=== PATIENT | male | born 1975 | race Caucasian/White ===

== ENCOUNTER 2020-06-12 14:30 | Outpatient (REF) | payer OTHER, SELFPAY | END 2020-06-12 14:31 | disposition home or self-care (01) | LOC: HO.LAB 14:30 | PROVIDERS: Visit Provider Internal Medicine | DX: Z20.822 Contact with and (suspected) exposure to COVID-19 (principal) | CPT/HCPCS: 36415; C9803; U0003 ==

== ENCOUNTER 2023-10-14 09:45 | Outpatient (AMB) | payer OTHER, SELFPAY ==
--- NOTE | 2023-10-14 10:00 | A.OFFPC_ITS ---
Vital Signs 10/14/23 10:01 Height 6 ft 1 in Weight 248 lb BMI 32.7 BP 118/62 Blood Pressure Location Lt brachial Position Sitting Pulse 60 Pulse Source Pulse Oximeter Pulse Oximetry (%) 96 Oxygen Delivery Method Room Air Intake Visit Reasons: EST care Intake Note: Patient is a new patient with complaint of bilateral knee pain. Allergies Seasonal Allergies Allergy (Mild, Verified 10/14/23 10:04) itchy, watery eyes, runny nose Tobacco use date assessed: 10/14/23 Dental Screening Dental Screen Date: 10/14/23 Did you have a dental visit in the last 12 months?: Yes Did you have a dental problem in the last 6 months where you did not have access to dental care?: No Was dental information given to patient?: Patient has dentist HPI EST care HPI Details New patient Prior PCP:? Dr Orantes Last office visit/CPE: CPE 7 mos ago Acute issue(s): Knees PMHx: Bilat Knee pain and had seen [facility]. Sleep Apnea has CPAP SurgHx: L Meniscus. R ACL, MCL & Arthroscopy. FHx: Mom: Skin CA. Dad: healthy GF Colon CA SocHx: Nonsmoker. EtOH: No drugs PFSH Medical History (Updated 10/14/23 @ 10:44 by Ruben New MD) Seasonal allergies Surgical History (Updated 10/14/23 @ 10:10 by Eneida Shankar CMA) H/O knee surgery [place] teeth removed Family History (Updated 10/14/23 @ 10:12 by Eneida Shankar CMA) Maternal Grandfather Colon cancer Social History (Updated 10/14/23 @ 10:16 by Eneida Shankar CMA) Household Members: Family Both parents involved: No Caregiver staying overnight: No Housing: House Are you a primary care team coordinator scheduler to a significant other at home: No Do you presently have visiting nurse or other home services: No 75 years or older and lives alone: No Alcohol intake: current Patient Tobacco Use Status: Never used Tobacco e-Cigarette/Vaping Use: Never Used Use of substances other than those prescribed or required for medical reasons: No Have you been hit, kicked, punched, or otherwise hurt by someone within the past year? If so, by whom?: No Do you feel safe in your current relationship?: Yes Is there a partner from a previous relationship who is making you feel unsafe now?: No Are you made to feel afraid or neglected: No Special shakila needs: No Are you DNR?: No Advance Directives: No Healthcare Proxy: No service: Yes Current occupational status: employed Cognitive needs: No Hearing needs: No Vision needs: Yes (Patient wears glasses.) Questionnaire PHQ-9 Over the last 2 weeks, how often have you been bothered by any of the following problems? 1. Little interest or pleasure in doing things: several days 2. Feeling down, depressed, or hopeless: several days 3. Trouble falling or staying asleep, or sleeping too much: nearly every day 4. Feeling tired or having little energy: nearly every day 5. Poor appetite or overeating: not at all 6. Feeling bad about yourself - or that you are a failure or have let yourself or your family down: not at all 7. Trouble concentrating on things, such as reading the newspaper or watching television: not at all 8. Moving or speaking so slowly that other people could have noticed. Or the opposite - being so fidgety or restless that you have been moving around a lot more than usual: not at all 9. Thoughts that you would be better off or of hurting yourself in some way: not at all Total score: 8 Depression Screening Interpretation: Positive Depression Screening Done: Yes 80713 - PHQ-9 Billing: Yes Source: Developed by Drs. Ravinder Milligan, Tennille Saucedo, Saroj Mcconnell and colleagues, with an educational esteban from [employer]. Thrive Questionnaire Date Thrive assessed: 10/14/23 I am a: Patient What is your living situation today?: I have a steady place to live Within the past 12 months, did the food you bought not last and you didn't have the money to get more?: Never true Within the past 12 months, did you worry whether your food would run out before you got money to buy more?: Never true Do you have trouble paying for medicines?: No Do you have trouble getting transportation to medical appointments?: No Do you have trouble paying your heating and electricity bill?: No Do you have trouble taking care of your child, family member or friend?: No Do you have trouble with day-to-day activities such as bathing, preparing meals, shopping, managing finances, etc.?: No Are you currently unemployed and looking for a job?: No Are you interested in more education?: No THRIVE Score: 0 AUDIT C Alcohol Use Questionnaire (AUDIT-C) 1. How often do you have a drink containing alcohol?: 2-3 times a week 2. How many drinks containing alcohol do you have on a typical day when you are drinking?: 5 or 6 3. How often do you have six or more drinks on one occasion?: Monthly Total Score: 7 ARIANA-7 AMB Questionnaire ARIANA-7 Date ARIANA - 7 assessed: 10/14/23 Feeling nervous, anxious, or on edge: 0 = Not at all Not being able to stop or control worryin = Not at all Worrying too much about different things: 0 = Not at all Trouble relaxin = Not at all Being so restless that it is hard to sit still: 0 = Not at all Becoming easily annoyed or irritable: 0 = Not at all Feeling afraid as if something awful might happen: 0 = Not at all Total ARIANA-7 score (0-4 normal; 5-9 mild; 10-14 moderate; 15-21 severe): 0 Source: Developed by Drs. Ravinder Milligan, Tennille Saucedo, Saroj Mcconnell and colleagues, with an educational esteban from [employer]. ARIANA-7 Assessment Billing ARIANA-7 Assessment Tool: ARIANA-7 Assessment 45063 Review of Systems Const Denies chills, Denies fatigue, Denies fever(s), Denies headache(s) and Denies weakness ENT Denies dizziness and Denies headache(s) Card Denies chest pain, Denies lightheadedness, Denies dyspnea and Denies other (Palpitations) Resp Denies cough, Denies dyspnea, Denies wheezing and Denies other ( shortness of breath) Musc Details: Bilateral knee pain Denies numbness and Denies tingling Neuro Denies dizziness, Denies headache(s), Denies numbness, Denies tingling, Denies paresthesias and Denies weakness Psych Denies anxiety and Denies depression Endo Denies fatigue Aller/Immun Denies wheezing Physical exam (Primary Care) Vital Signs: Last Vital Signs Pulse 60 10/14/23 10:01 BP 118/62 10/14/23 10:01 Pulse Ox 96 10/14/23 10:01 Oxygen Delivery Method Room Air 10/14/23 10:01 BMI result Body Mass Index 32.7 Tobacco/Smoking Status: Tobacco use Status Tobacco use date assessed 10/14/23 10/14/23 10:17 Patient Tobacco Use Status Never used Tobacco 10/14/23 10:17 e-Cigarette/Vaping Use Never Used 10/14/23 10:17 PHQ-9: PHQ-9 Score PHQ-9: Total score 8 10/14/23 10:22 Depression Screening Interpretation: Positive Thrive Assessment: Date of Thrive Assessment Date Thrive assessed 10/14/23 10/14/23 10:22 Const General: no acute distress and well developed Nutritional Appearance: well nourished Orientation/consciousness: patient oriented x3 HENMT Head: Yes normocephalic and Yes atraumatic Eyes General: appearance normal, both eyes and all related structures Pupils: Equal, round and reactive pupils present EOM: EOMs intact bilaterally Resp Effort & Inspection: normal respiratory effort Auscultation: clear to auscultation bilaterally Cardio Rate: regular rate Rhythm: regular rhythm Heart sounds: S1 normal heart sound present, S2 normal heart sound present, no gallops, no murmurs and no rubs Neuro General: patient oriented x3 and gait normal Cranial nerves: Yes Equal, round and reactive pupils present Psych Affect: normal affect Assessment and Plan Assessment & Plan (1) Bilateral knee pain: Code(s): M25.561 - Pain in right knee; M25.562 - Pain in left knee Plan: Bilateral?knee?pain?and?hist ory?of?meniscal?and?cartilaginous?injuries?as?well?as?ligamentous?injuries. Patient?was?lifting?heavy?objects?with?deep?knee?bending?last?week?and?now?has?d iscomfort?above?his?knee?at?the?patellar?ten don.??Has?some?mild?swelling?there?as?well. Likely?patellar?tendon?strain?and?inflammation. Can?use?ibuprofen?as?well?as?ice/heat. Will?give?him?a?couple?days?off?to?rest?his?knees. Also?checking?x-rays?as?patient?has swelling?in?bilateral?knees?with?chronic?pain. Has?seen?new[facility]?in?the?past?and?may?need?a?referral?again. May?also?need?referral?to?physical?therapy. Will?review?the?above?at?his?upcoming?appoint (2) Sleep apnea: Code(s): G47.30 - Sleep apnea, unspecified Plan: Stable.??Continue?CPAP (3) Family history of colon cancer: Code(s): Z80.0 - Family history of malignant neoplasm of digestive organs Plan: Will?refer?to?Gastroenterology (4) Laboratory exam ordered as part of routine general medical examination: Code(s): Z00.00 - Encounter for general adult medical examination without abnormal findings Plan: Check?labs Orders: Orders Comprehensive [place]. Panel Fast Today Z00.00 - Encounter for general adult medical examination without abnormal findings Microalbumin, Random (w Creat) Today I10 - Essential (primary) hypertension Lipid Panel Today Z00.00 - Encounter for general adult medical examination without abnormal findings Prostate Specific Antigen Scr Today Z12.5 - Encounter for screening for malignant neoplasm of prostate UA and rflx microscopic Today Z00.00 - Encounter for general adult medical examination without abnormal findings TSH reflex Free T4 Today Z00.00 - Encounter for general adult medical examination without abnormal findings XR knee LT 3V Today M25.561 - Pain in right knee, M25.562 - Pain in left knee XR knee RT 3V Today M25.561 - Pain in right knee, M25.562 - Pain in left knee Referrals Gastroenterology Referral Z80.0 - Family history of malignant neoplasm of digestive organs Medications: New ibuprofen 600 mg PO Q8H 30 days PRN 90 tabs 0RF pain/swelling Coding Level of Care Code New Pt Level 3 (95259) Diagnoses Bilateral knee pain M25.561; M25.562 Sleep apnea G47.30 Family history of colon cancer Z80.0 Laboratory exam ordered as part of routine general medical examination Z00.00 Additional Codes ARIANA-7 Assessment Billing - ARIANA-7 Assessment Tool: ARIANA-7 Assessment 13176 ([id number])
[2023-10-14 10:01] VITALS: BP 118/62; PULSE 60; O2SAT 96; BMI 32.7
== END 2023-10-14 10:45 | disposition home or self-care (01) ==
PROVIDERS: PCP Internal Medicine; Visit Provider Family Medicine
DX: M25.561 Pain in right knee (principal); M25.562 Pain in left knee; G47.30 Sleep apnea, unspecified; Z80.0 Family history of malignant neoplasm of digestive organs; Z00.00 Encounter for general adult medical examination without abnormal findings
CPT/HCPCS: 99203

== ENCOUNTER 2023-10-14 10:50 | Outpatient (REF) | payer OTHER, SELFPAY ==
[2023-10-14 14:29] LABS: Appearance Urine Turbid; Color Urine Dark Yellow; Glucose Urine UA Negative (Negative); Leukocyte Esterase Urine Negative (Negative); Nitrite Urine Negative (Negative); PH 5.5 (5.0-9.0); Specific Gravity - Urine 1.025 (1.005-1.025); Urine Blood Negative (Negative); Urine Ketones Trace mg/dL (Negative); Urine Protein Negative (Neg-Trace)
[2023-10-14 15:18] LABS: Creatinine Urine 236.33 mg/dL; Microalbum/Creatinine Ratio Ur 6.3 ug/mg cr (<30)
[2023-10-14 15:40] LABS: Alanine Aminotransferase 25 U/L (0-40); Albumin Level 4.7 g/dL (3.5-5.0); Alkaline Phosphatase 126 U/L (39-117); Anion Gap 15 (12-20); Aspartate Amino Transferase 26 U/L (5-37); Blood Urea Nitrogen 17 mg/dL (9-16); Calcium 10.1 mg/dL (8.4-10.2); Carbon Dioxide 25 mmol/L (22-29); Chloride 106 mmol/L (96-108); Cholesterol 174 mg/dL (<200); Estimated Glomerular Filt Rate > 60; Glucose Fasting 79 mg/dL (60-99); HDL Cholesterol 49 mg/dL (>40); LDL Cholesterol Calculated 107 mg/dL (<100); Potassium 3.9 mmol/L (3.3-5.1); Sodium 142 mmol/L (135-145); Triglycerides 91 mg/dL (<150)
[2023-10-14 15:55] LABS: TSH reflex Free T4 2.59 uIU/mL (0.32-4.0)
[2023-10-14 15:56] LABS: Prostate Specific Antigen Scr 1.54 ng/mL (<0.05-4.0)
== END 2023-10-14 10:51 | disposition home or self-care (01) ==
LOC: HO.WFDLDS 10:50
PROVIDERS: Visit Provider Family Medicine
DX: Z00.00 Encounter for general adult medical examination without abnormal findings (principal); I10 Essential (primary) hypertension; Z12.5 Encounter for screening for malignant neoplasm of prostate
CPT/HCPCS: 36415; 80053; 80061; 81003; 82043; 82570; 84153; 84443

== ENCOUNTER 2023-10-15 10:17 | Outpatient (REF) | payer OTHER, SELFPAY ==
--- NOTE | ~2023-10-15 | XR_ITS ---
EXAMINATION: XR KNEE, RIGHT CLINICAL INFORMATION: Pain in right knee COMPARISON: None available. TECHNIQUE: The of the right knee. FINDINGS: No fracture. Small joint effusion. The patient is status post ACL repair with screw seen within the distal femur and proximal tibia. There is marked narrowing of the medial joint compartment. There are tricompartment marginal osteophytes. There is lateral patellar tilt with associated narrowing of the patellofemoral joint compartment. Small ossific or calcific densities are seen superior to the upper pole of the patella and also posterior to the lower pole of patella, on the lateral view. These may represent loose bodies within the joint. XR/XR knee RT 3V IMPRESSION: 1. No acute bony abnormality. 2. Status post ACL repair. 3. Marked osteoarthritis. 4. Question of loose bodies within the joint.
--- NOTE | ~2023-10-15 | XR_ITS ---
EXAMINATION: XR KNEE, LEFT CLINICAL INFORMATION: Pain in right knee COMPARISON: None available. TECHNIQUE: 3 views of the left knee. FINDINGS: No fracture. Large joint effusion. There is mild patellar tilt with mild narrowing of the lateral patellofemoral joint compartment. There is moderate narrowing of the medial joint compartment with subchondral cyst within the tibial plateau. No abnormal soft tissue calcification. XR/XR knee LT 3V IMPRESSION: 1. Moderate osteoarthritis. 2. Large joint effusion.
== END 2023-10-15 10:18 | disposition home or self-care (01) ==
LOC: HO.XRAY 10:17
PROVIDERS: Visit Provider Family Medicine
DX: M25.561 Pain in right knee (principal); M25.562 Pain in left knee
CPT/HCPCS: 73562

== ENCOUNTER 2024-01-29 07:47 | Outpatient (AMB) | payer OTHER, SELFPAY ==
--- NOTE | 2024-01-29 08:01 | A.OFFPC_ITS ---
Vital Signs 01/29/24 08:04 Height 6 ft 1 in Weight 250 lb 2 oz BMI 33.0 BP 126/82 Blood Pressure Location Rt brachial Position Sitting Respiration 16 Pulse 65 Pulse Source Pulse Oximeter Pulse Oximetry (%) 98 Oxygen Delivery Method Room Air Intake Visit Reasons: CPE with f/u labs and health maint Intake Note: Physical. Trouble sleeping. 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 Allergies Seasonal Allergies Allergy (Mild, Verified 01/29/24 08:01) itchy, watery eyes, runny nose Medication List - Last Reconciled 01/29/24 by Yesica Payne PA-C fluticasone propionate 50 mcg/actuation (Flonase Allergy Relief) 1 spray intranasal Q12H ibuprofen 600 mg PO Q8H PRN 30 days Tobacco use date assessed: 01/29/24 Dental Screening Dental Screen Date: 01/29/24 Did you have a dental visit in the last 12 months?: Yes Did you have a dental problem in the last 6 months where you did not have access to dental care?: No Was dental information given to patient?: No HPI CPE with f/u labs and health maint HPI Details Patient is a 48-year-old male who presents today for a follow up/physical. He was seen recently to establish care with Dr. New. Musculoskeletal: He made the appointment initially because of his bilateral knee pain. X-rays revealed osteoarthritis. He takes ibuprofen as needed for the pain but states that his knees bother him a lot in that they are always swollen. At times it feels like they are going to give out on him. He has had knee surgery on both knees and would like to go back to [facility]. CV: Blood pressure today in the office is 126/82. No chest pain, shortness a or dizziness Psych: He states that for many years he has had a hard time staying asleep. He states that he sometimes can fall asleep without difficulty but we will often times wake up a few hours later. He has had a sleep study and does have sleep apnea and is compliant with CPAP. He has tried trazodone, edibles and melatonin without any improvement. Denies any generalized anxiety or depression. He states he is not waking up because he ST use the bathroom he wakes up and then just can not go back to bed. Colonoscopy: He was referred to GI at his last visit. He does have a family history of colon cancer. Appointment scheduled in April PSA: Up-to-date and [facility]NL [facility] Medical History (Updated 01/29/24 @ 08:36 by Yesica Payne PA-C) Seasonal allergies Surgical History (Updated 10/14/23 @ 10:10 by Eneida Shankar CMA) H/O knee surgery [place] teeth removed Family History (Updated 10/14/23 @ 10:12 by Eneida Shankar CMA) Maternal Grandfather Colon cancer Social History (Updated 10/14/23 @ 10:16 by Eneida Shankar CMA) Household Members: Family Both parents involved: No Caregiver staying overnight: No Housing: House Are you a primary medicare coordinator to a significant other at home: No Do you presently have visiting nurse or other home services: No 75 years or older and lives alone: No Alcohol intake: current Patient Tobacco Use Status: Never used Tobacco e-Cigarette/Vaping Use: Never Used Substance Use Type: Marijuana Special shakila needs: No service: Yes Current occupational status: employed Current occupation: [employer] Current occupational exposures/hazards: No Cognitive needs: No Hearing needs: No Vision needs: Yes (Patient wears glasses.) Questionnaire PHQ-9 Over the last 2 weeks, how often have you been bothered by any of the following problems? 1. Little interest or pleasure in doing things: not at all 2. Feeling down, depressed, or hopeless: not at all 3. Trouble falling or staying asleep, or sleeping too much: nearly every day 4. Feeling tired or having little energy: more than half the days 5. Poor appetite or overeating: more than half the days 6. Feeling bad about yourself - or that you are a failure or have let yourself or your family down: not at all 7. Trouble concentrating on things, such as reading the newspaper or watching television: not at all 8. Moving or speaking so slowly that other people could have noticed. Or the opposite - being so fidgety or restless that you have been moving around a lot more than usual: several days 9. Thoughts that you would be better off or of hurting yourself in some way: not at all Total score: 8 Depression Screening Interpretation: Positive Depression Screening Done: Yes 96087 - PHQ-9 Billing: Yes Source: Developed by Drs. Ravinder Milligan, Tennille Saucedo, Saroj Mcconnell and colleagues, with an educational esteban from [employer]. Thrive Questionnaire Date Thrive assessed: 01/29/24 I am a: Patient What is your living situation today?: I have a steady place to live Within the past 12 months, did the food you bought not last and you didn't have the money to get more?: Never true Within the past 12 months, did you worry whether your food would run out before you got money to buy more?: Never true Do you have trouble paying for medicines?: No Do you have trouble getting transportation to medical appointments?: No Do you have trouble paying your heating and electricity bill?: No Do you have trouble taking care of your child, family member or friend?: No Do you have trouble with day-to-day activities such as bathing, preparing meals, shopping, managing finances, etc.?: No Are you currently unemployed and looking for a job?: No Are you interested in more education?: No Please select the resources that you would like help with: None Currently or been in a relationship where the following occur: No concerns reported THRIVE Score: 0 AUDIT C Alcohol Use Questionnaire (AUDIT-C) 1. How often do you have a drink containing alcohol?: 4 or more times a week 2. How many drinks containing alcohol do you have on a typical day when you are drinking?: 3 or 4 3. How often do you have six or more drinks on one occasion?: Less than monthly (Special occasions) Total Score: 6 Score Reviewed/Action Taken: Yes ARIANA-7 AMB Questionnaire ARIANA-7 Date ARIANA - 7 assessed: 10/14/23 Source: Developed by Drs. Ravinder Milligan, Tennille Saucedo, Saroj Mcconnell and colleagues, with an educational esteban from [employer]. Physical exam (Primary Care) Tobacco/Smoking Status: Tobacco use Status Tobacco use date assessed 10/14/23 10/14/23 10:17 Patient Tobacco Use Status Never used Tobacco 10/14/23 10:17 e-Cigarette/Vaping Use Never Used 10/14/23 10:17 Depression Screening Interpretation: Positive Thrive Assessment: Date of Thrive Assessment Date Thrive assessed 10/14/23 10/14/23 10:22 Currently or been in a relationship where the following occur: No concerns reported Const Orientation/consciousness: patient oriented x3 HENMT Ears: hearing grossly normal bilaterally and TM's normal bilaterally General nose exam: No nasal polyps present Face and sinus: Yes sinuses nontender Mouth: Normal oral and palatal mucosa present Eyes Pupils: Equal, round and reactive pupils present EOM: EOMs intact bilaterally Neck Neck: Yes full ROM and Yes no lymphadenopathy Thyroid: Thyroid normal Chest Chest palpation & inspection: normal inspection of the chest Resp Auscultation: clear to auscultation bilaterally Cardio Rate: regular rate Rhythm: regular rhythm Heart sounds: S1 normal heart sound present and S2 normal heart sound present Peripheral pulses: Peripheral pulses 2+ throughout GI Other: Soft, nontender Auscultation: normal bowel sounds Rectal Exam - Male: Yes deferred General: Yes no CVA tenderness Back/Spine/Pelvis Other: Nontender Back: no CVA tenderness Skin General skin exam: no rashes or lesions noted Neuro General: patient oriented x3, gait normal, CN's II-XI intact bilaterally and deep tendon reflexes 2+ bilaterally Cranial nerves: Yes Equal, round and reactive pupils present Motor exam (neuro): 5/5 motor strength present throughout Sensory Exam: double simultaneous stimulation for sensation normal Coordination: tvasak-bu-jnar test normal and Romberg test negative Extrem General: Yes normal to inspection and Yes full ROM Psych Affect: normal affect Attitude: cooperative Thought process: Normal thought process present Thought content: Normal thought content present Insight: Good insight present (Psych) Judgement: Good judgement present (Psych) Results Reviewed Results Reviewed: Laboratory Tests 10/14/23 10:52 Sodium 142 Potassium 3.9 Chloride 106 Carbon Dioxide 25 Anion Gap 15 BUN 17 H Creatinine 0.84 Estimated GFR > 60 Fasting Glucose 79 Calcium 10.1 AST 26 ALT 25 Alkaline Phosphatase 126 H Triglycerides 91 Cholesterol 174 LDL Cholesterol, Calc 107 H HDL Cholesterol 49 PSA Screen 1.54 TSH 2.59 XR/XR knee LT 3V IMPRESSION: 1. Moderate osteoarthritis. 2. Large joint effusion. XR/XR knee RT 3V IMPRESSION: 1. No acute bony abnormality. 2. Status post ACL repair. 3. Marked osteoarthritis. 4. Question of loose bodies within the joint. Assessment and Plan Assessment & Plan (1) Routine general medical examination at a health care facility: Code(s): Z00.00 - Encounter for general adult medical examination without abnormal findings Plan: Health maintenance reviewed. Labs reviewed with patient. (2) Bilateral knee pain: Code(s): M25.561 - Pain in right knee; M25.562 - Pain in left knee Qualifiers: Chronicity: chronic Qualified Code(s): M25.561 - Pain in right knee; M25.562 - Pain in left knee; G89.29 - Other chronic pain Plan: Referral to [facility] (3) Insomnia: Code(s): G47.00 - Insomnia, unspecified Plan: We will start on hydroxyzine. Discussed risks and benefits and adverse effects of this medication. Orders: Orders Complete Blood Count Auto Diff Today Z00.00 - Encounter for general adult medical examination without abnormal findings Referrals Orthopedics Referral M25.561 - Pain in right knee, M25.562 - Pain in left knee Medications: New hydroxyzine HCl 25 mg PO BEDTIME 90 tabs 1RF Coding Level of Care Code Est Pt Prev Care 40-64y(87747) Diagnoses Routine general medical examination at a health care facility Z00.00 Chronic pain of both knees M25.561; M25.562; G89.29 Chronicity: chronic Insomnia G47.00
[2024-01-29 08:04] VITALS: BP 126/82; PULSE 65; RESP 16; O2SAT 98; BMI 33.0
== END 2024-01-29 08:27 | disposition home or self-care (01) ==
PROVIDERS: PCP Family Medicine; Visit Provider Physician Assistant
DX: Z00.00 Encounter for general adult medical examination without abnormal findings (principal); M25.561 Pain in right knee; M25.562 Pain in left knee; G89.29 Other chronic pain; G47.00 Insomnia, unspecified
CPT/HCPCS: 99396

== ENCOUNTER 2024-01-29 08:38 | Outpatient (REF) | payer OTHER, SELFPAY ==
[2024-01-29 09:12] LABS: MANUAL DIFF FLAG NO
[2024-01-29 09:16] LABS: Basophils Percent Auto 0.5 % (0-2); Eosinophils Absolute Auto 0.2 X10*3/uL (0.0-0.4); Hematocrit 45.1 % (42.0-52.0); Hemoglobin 16.1 g/dl (14.0-18.0); Imm Gran Abs Auto 0.02 X10*3/uL (0.00-0.03); Imm Gran Pct Auto 0.5 % (0.0-0.4); Lymphocytes Absolute Auto 1.4 X10*3/uL (1.2-4.9); Lymphocytes Percent Auto 38.1 % (20-40); Mean Corpuscular HGB Conc 35.7 g/dl (31.0-36.0); Mean Corpuscular Hemoglobin 33.1 pg (27.0-33.0); Mean Corpuscular Volume 92.8 fL (80.0-98.0); Monocytes Absolute Auto 0.5 X10*3/uL (0.1-1.2); Monocytes Percent Auto 13.2 % (2-11); Neutrophils Absolute Auto 1.7 x10*3/uL (2.0-8.3); Neutrophils Percent Auto 43.7 % (45-73); Platelet Count 203 X10*3/uL (160-400); Red Blood Count 4.86 X10*6/uL (4.60-5.80); Red Cell Distribution Width 12.7 % (11.0-16.0); White Blood Count 3.8 X10*3/uL (4.8-10.8)
== END 2024-01-29 08:39 | disposition home or self-care (01) ==
LOC: HO.WFDLDS 08:38
PROVIDERS: Visit Provider Physician Assistant
DX: Z00.00 Encounter for general adult medical examination without abnormal findings (principal)
CPT/HCPCS: 36415; 85025

== ENCOUNTER 2024-05-04 08:17 | Outpatient (AMB) | payer OTHER, SELFPAY ==
--- NOTE | 2024-05-04 08:33 | A.OFFPC_ITS ---
Vital Signs 05/04/24 08:36 Height 6 ft 1 in Weight 257 lb BMI 33.9 BP 122/70 Blood Pressure Location Lt brachial Position Sitting Respiration 13 Pulse 66 Pulse Source Pulse Oximeter Temp 98.0 F Temp Source Oral Pulse Oximetry (%) 97 Oxygen Delivery Method Room Air Intake Visit Reasons: knee pain, insomnia Intake Note: follow up on both knee pain and insomnia Screen Making Technician Required: No Allergies Seasonal Allergies Allergy (Mild, Verified 05/04/24 08:35) itchy, watery eyes, runny nose Tobacco use date assessed: 01/29/24 Dental Screening Dental Screen Date: 01/29/24 HPI knee pain, insomnia HPI Details Follow-up?bilateral?knee?pain?and?also?insomnia. Also?had?repeat?CBC?for?mild?leukopenia On?checking?with?patient,?he?sometimes?has?up?to?6?drinks?per?night. Patient?saw?ortho?regarding?his?knees?and?advise?he?con tinue?NSAIDs.??Did?not?offer?other?interventions?at?this?time. He?uses?ibuprofen?as?needed?and?this?is?helping Patient?tried?hydroxyzine?and?said?it?helped?only?a?little.??He?is?using?his?CPA P. LDL?cholesterol?slightly?elevated?at?[facility] Medical History (Updated 05/04/24 @ 08:58 by Ruben New MD) Seasonal allergies Surgical History (Updated 10/14/23 @ 10:10 by Eneida Shankar CMA) H/O knee surgery [place] teeth removed Family History (Updated 10/14/23 @ 10:12 by Eneida Shankar CMA) Maternal Grandfather Colon cancer Social History (Updated 01/29/24 @ 08:04 by Elisa Soto CMA) Household Members: Family Both parents involved: No Caregiver staying overnight: No Housing: House Are you a primary home visit field care manager to a significant other at home: No Do you presently have visiting nurse or other home services: No 75 years or older and lives alone: No Alcohol intake: current Patient Tobacco Use Status: Never used Tobacco e-Cigarette/Vaping Use: Never Used Substance Use Type: Marijuana Special shakila needs: No service: Yes Current occupational status: employed Current occupation: [employer] Current occupational exposures/hazards: No Cognitive needs: No Hearing needs: No Vision needs: Yes (Patient wears glasses.) Questionnaire PHQ-9 Over the last 2 weeks, how often have you been bothered by any of the following problems? 1. Little interest or pleasure in doing things: not at all 2. Feeling down, depressed, or hopeless: not at all 3. Trouble falling or staying asleep, or sleeping too much: nearly every day 4. Feeling tired or having little energy: several days 5. Poor appetite or overeating: not at all 6. Feeling bad about yourself - or that you are a failure or have let yourself or your family down: not at all 7. Trouble concentrating on things, such as reading the newspaper or watching television: not at all 8. Moving or speaking so slowly that other people could have noticed. Or the opposite - being so fidgety or restless that you have been moving around a lot more than usual: not at all 9. Thoughts that you would be better off or of hurting yourself in some way: not at all Total score: 4 00474 - PHQ-9 Billing: Yes Source: Developed by Drs. Ravinder Milligan, Tennille Saucedo, Saroj Mcconnell and colleagues, with an educational esteban from [employer]. Thrive Questionnaire Date Thrive assessed: 05/04/24 I am a: Patient What is your living situation today?: I have a steady place to live Within the past 12 months, did the food you bought not last and you didn't have the money to get more?: I choose not to answer this question Within the past 12 months, did you worry whether your food would run out before you got money to buy more?: I choose not to answer this question Do you have trouble paying for medicines?: No Do you have trouble getting transportation to medical appointments?: No Do you have trouble paying your heating and electricity bill?: No Do you have trouble taking care of your child, family member or friend?: No Do you have trouble with day-to-day activities such as bathing, preparing meals, shopping, managing finances, etc.?: No Are you currently unemployed and looking for a job?: No Are you interested in more education?: No Please select the resources that you would like help with: None Currently or been in a relationship where the following occur: No concerns reported THRIVE Score: 0 AUDIT C Alcohol Use Questionnaire (AUDIT-C) 1. How often do you have a drink containing alcohol?: 2-3 times a week 2. How many drinks containing alcohol do you have on a typical day when you are drinking?: 3 or 4 3. How often do you have six or more drinks on one occasion?: Less than monthly Total Score: 5 ARIANA-7 AMB Questionnaire ARIANA-7 Date ARIANA - 7 assessed: 05/04/24 Feeling nervous, anxious, or on edge: 0 = Not at all Not being able to stop or control worryin = Not at all Worrying too much about different things: 0 = Not at all Trouble relaxin = Not at all Being so restless that it is hard to sit still: 0 = Not at all Becoming easily annoyed or irritable: 0 = Not at all Feeling afraid as if something awful might happen: 0 = Not at all Total ARIANA-7 score (0-4 normal; 5-9 mild; 10-14 moderate; 15-21 severe): 0 Source: Developed by Drs. Ravinder Milligan, Tennille Saucedo, Saroj Mcconnell and colleagues, with an educational esteban from [employer]. ARIANA-7 Assessment Billing ARIANA-7 Assessment Tool: ARIANA-7 Assessment 04086 Review of Systems Const Denies chills, Denies fatigue, Denies fever(s), Denies headache(s) and Denies weakness ENT Denies dizziness and Denies headache(s) Card Denies chest pain, Denies lightheadedness, Denies dyspnea and Denies other (Palpitations) Resp Denies cough, Denies dyspnea, Denies wheezing and Denies other ( shortness of breath) Musc Details: Bilateral?knee?pain Denies numbness and Denies tingling Neuro Denies dizziness, Denies headache(s), Denies numbness, Denies tingling, Denies paresthesias and Denies weakness Psych Denies anxiety (Difficulty?sleeping) and Denies depression Endo Denies fatigue Aller/Immun Denies wheezing Physical exam (Primary Care) Vital Signs: Last Vital Signs Temp 98.0 F 05/04/24 08:36 Pulse 66 05/04/24 08:36 Resp 13 05/04/24 08:36 BP 122/70 05/04/24 08:36 Pulse Ox 97 05/04/24 08:36 Oxygen Delivery Method Room Air 05/04/24 08:36 BMI result Body Mass Index 33.9 Tobacco/Smoking Status: Tobacco use Status Tobacco use date assessed 01/29/24 05/04/24 08:38 Patient Tobacco Use Status Never used Tobacco 05/04/24 08:38 e-Cigarette/Vaping Use Never Used 05/04/24 08:38 PHQ-9: PHQ-9 Score PHQ-9: Total score 4 05/04/24 08:38 Thrive Assessment: Date of Thrive Assessment Date Thrive assessed 05/04/24 05/04/24 08:38 Currently or been in a relationship where the following occur: No concerns reported Const General: no acute distress and well developed Nutritional Appearance: well nourished Orientation/consciousness: patient oriented x3 HENMT Head: Yes normocephalic and Yes atraumatic Eyes General: appearance normal, both eyes and all related structures Pupils: Equal, round and reactive pupils present EOM: EOMs intact bilaterally Resp Effort & Inspection: normal respiratory effort Auscultation: clear to auscultation bilaterally Cardio Rate: regular rate Rhythm: regular rhythm Heart sounds: S1 normal heart sound present, S2 normal heart sound present, no gallops, no murmurs and no rubs Neuro General: patient oriented x3 and gait normal Cranial nerves: Yes Equal, round and reactive pupils present Psych Affect: normal affect Coding Level of Care Code Est Pt Level 4 (50284) Diagnoses Chronic pain of both knees M25.561; M25.562; G89.29 Chronicity: chronic Insomnia G47.00 Alcohol use disorder, mild, abuse F10.10 Hyperlipidemia E78.5 Additional Codes ARIANA-7 Assessment Billing - ARIANA-7 Assessment Tool: ARIANA-7 Assessment 21231 ([id number]) PHQ-9 - 96462 - PHQ-9 Billing: Yes ([id number]) Assessment & Plan Assessment & Plan (1) Bilateral knee pain: Code(s): M25.561 - Pain in right knee; M25.562 - Pain in left knee Category: Medical Qualifiers: Chronicity: chronic Qualified Code(s): M25.561 - Pain in right knee; M25.562 - Pain in left knee; G89.29 - Other chronic pain Plan: Bilateral?knee?pain?and?x-rays?show?mild?to?severe?osteoarthritis Continue?ibuprofen He?will?let?me?know?if?his?knees?or?worsening?refer?him?back?Ortho. Also?advised?some?weight?loss (2) Insomnia: Code(s): G47.00 - Insomnia, unspecified Category: Medical Plan: Patient?is?using?his?CPAP.??Tried?hydroxyzine?going?helps?a?little. Advised?he?work?decreasing?alcohol?intake Advise?he?exercise but?keep?it?earlier in his?day Can?try?melatonin?and?changing bedtime Can?continue?hydroxyzine?as?needed Advised?look?up?sleep?hygiene?for?additionally?needs (3) Alcohol use disorder, mild, abuse: Code(s): F10.10 - Alcohol abuse, uncomplicated Category: Medical Plan: As?above,?advised?patient?decrease?alcohol?intake This?is?also?likely?cause?for?mild?leukopenia (4) Hyperlipidemia: Code(s): E78.5 - Hyperlipidemia, unspecified Category: Medical Plan: Advised?a?diet?lower?in?saturated?fats?and?cholesterol Advised?weight?loss?and?exercise?as?tolerated
[2024-05-04 08:36] VITALS: BP 122/70; PULSE 66; RESP 13; TEMP 36.7; O2SAT 97; BMI 33.9
== END 2024-05-04 08:55 | disposition home or self-care (01) ==
PROVIDERS: PCP Family Medicine; Visit Provider Family Medicine
DX: M25.561 Pain in right knee (principal); M25.562 Pain in left knee; G89.29 Other chronic pain; G47.00 Insomnia, unspecified; F10.10 Alcohol abuse, uncomplicated; E78.5 Hyperlipidemia, unspecified

== ENCOUNTER → 2024-05-04 08:17 | Outpatient (BNVA) | payer OTHER, SELFPAY | PROVIDERS: PCP Family Medicine; Visit Provider Family Medicine | DX: M25.561 Pain in right knee (principal); M25.562 Pain in left knee; G89.29 Other chronic pain; G47.00 Insomnia, unspecified; E78.5 Hyperlipidemia, unspecified; F10.10 Alcohol abuse, uncomplicated; Z99.89 Dependence on other enabling machines and devices | CPT/HCPCS: 96127 ==

== ENCOUNTER 2025-01-28 09:04 | Outpatient (REF) | payer OTHER, SELFPAY ==
[2025-01-28 11:02] LABS: MANUAL DIFF FLAG NO
[2025-01-28 11:05] LABS: Hematocrit 46.7 % (42.0-52.0); Hemoglobin 16.2 g/dl (14.0-18.0); Imm Gran Abs Auto 0.01 X10*3/uL (0.00-0.03); Imm Gran Pct Auto 0.3 % (0.0-0.4); Lymphocytes Absolute Auto 1.2 X10*3/uL (1.2-4.9); Mean Corpuscular HGB Conc 34.7 g/dl (31.0-36.0); Mean Corpuscular Hemoglobin 32.3 pg (27.0-33.0); Mean Corpuscular Volume 93.0 fL (80.0-98.0); NRBC Abs Auto 0.000 X10*3/uL (0.0-0.012); NRBC Pct Auto 0.0 /100WBC (0.0-0.2); Platelet Count 214 X10*3/uL (160-400); Red Blood Count 5.02 X10*6/uL (4.60-5.80); White Blood Count 3.7 X10*3/uL (4.8-10.8)
[2025-01-28 11:10] LABS: Appearance Urine Turbid; Glucose Urine UA Negative (Negative); PH 8.0 (5.0-9.0); Specific Gravity - Urine 1.020 (1.005-1.025)
[2025-01-28 11:49] LABS: Alanine Aminotransferase 34 U/L (0-40); Albumin Level 4.9 g/dL (3.5-5.0); Alkaline Phosphatase 116 U/L (39-117); Anion Gap 12 (12-20); Aspartate Amino Transferase 34 U/L (5-37); Blood Urea Nitrogen 14 mg/dL (9-16); Calcium 9.5 mg/dL (8.4-10.2); Carbon Dioxide 27 mmol/L (22-29); Chloride 107 mmol/L (96-108); Cholesterol 174 mg/dL (<200); Estimated Glomerular Filt Rate > 60; HDL Cholesterol 44 mg/dL (>40); Potassium 4.2 mmol/L (3.3-5.1); Sodium 142 mmol/L (135-145); Total Protein 7.5 g/dL (6.5-8.0); Triglycerides 91 mg/dL (<150)
[2025-01-28 11:59] LABS: Microalbum/Creatinine Ratio Ur 5.6 ug/mg cr (<30)
== END 2025-01-28 09:05 | disposition home or self-care (01) ==
LOC: HO.WFDLDS 09:04
PROVIDERS: Visit Provider Family Medicine
DX: Z00.00 Encounter for general adult medical examination without abnormal findings (principal); Z12.5 Encounter for screening for malignant neoplasm of prostate; I10 Essential (primary) hypertension
CPT/HCPCS: 36415; 80053; 80061; 81003; 82043; 82570; 84153; 84443; 85025

== ENCOUNTER 2025-01-31 08:44 | Outpatient (AMB) | payer OTHER, SELFPAY ==
[2025-01-31 08:49] VITALS: BP 138/86; PULSE 73; O2SAT 96; BMI 33.3
--- NOTE | 2025-01-31 08:49 | A.OFFPC_ITS ---
Vital Signs 01/31/25 08:49 Height 6 ft 1 in Weight 252 lb 6 oz BMI 33.3 BP 138/86 Blood Pressure Location Rt brachial Position Sitting Pulse 73 Pulse Source Pulse Oximeter Pulse Oximetry (%) 96 Oxygen Delivery Method Room Air Intake Visit Reasons: CPE Allergies Seasonal Allergies Allergy (Mild, Verified 01/31/25 08:49) itchy, watery eyes, runny nose Medication List - Last Reconciled 01/31/25 by Ruben New MD fluticasone propionate 50 mcg/actuation (Flonase Allergy Relief) 1 spray intranasal Q12H ibuprofen 600 mg PO Q8H PRN 30 days Tobacco use date assessed: 01/31/25 Dental Screening Dental Screen Date: 01/31/25 Did you have a dental visit in the last 12 months?: Yes Did you have a dental problem in the last 6 months where you did not have access to dental care?: No Was dental information given to patient?: Patient has dentist HPI CPE HPI Details 49 y/o male presents for a CPE with f/u labs and health maint. Labs drawn 01/28/25. Reviewed labs with pt. Triglycerides 91. TC 174. LDL 112. HDL 44. PSA 2.09. TSH 2.18. He reports ongoing insomnia. Does have KALA and has been using his CPAP machine. He does not remember the last time machine has been calibrated. Pt notes he tries to keep himself active. PFSH Medical History Seasonal allergies Surgical History H/O knee surgery [place] teeth removed Family History Maternal Grandfather Colon cancer Social History Household Members: Family Both parents involved: No Caregiver staying overnight: No Housing: House Are you a primary behavioral health care manager to a significant other at home: No Do you presently have visiting nurse or other home services: No 75 years or older and lives alone: No Alcohol intake: current Patient Tobacco Use Status: Never used Tobacco e-Cigarette/Vaping Use: Never Used Substance Use Type: Marijuana Special shakila needs: No service: Yes Current occupational status: employed Current occupation: Paper factory Current occupational exposures/hazards: No Cognitive needs: No Hearing needs: No Vision needs: Yes (Patient wears glasses.) Questionnaire PHQ-9 Over the last 2 weeks, how often have you been bothered by any of the following problems? 1. Little interest or pleasure in doing things: not at all 2. Feeling down, depressed, or hopeless: not at all 3. Trouble falling or staying asleep, or sleeping too much: nearly every day 4. Feeling tired or having little energy: more than half the days 5. Poor appetite or overeating: several days 6. Feeling bad about yourself - or that you are a failure or have let yourself or your family down: not at all 7. Trouble concentrating on things, such as reading the newspaper or watching television: not at all 8. Moving or speaking so slowly that other people could have noticed. Or the opposite - being so fidgety or restless that you have been moving around a lot more than usual: not at all 9. Thoughts that you would be better off or of hurting yourself in some way: not at all Total score: 6 Depression Screening Interpretation: Positive Depression Screening Follow-up: Declines treatment Depression Screening Done: Yes 44600 - PHQ-9 Billing: Yes Source: Developed by Drs. Ravinder Milligan, Tennille Saucedo, Saroj Mcconnell and colleagues, with an educational esteban from [employer]. Thrive Questionnaire Date Thrive assessed: 01/31/25 I am a: Patient What is your living situation today?: I have a steady place to live Within the past 12 months, did the food you bought not last and you didn't have the money to get more?: Never true Within the past 12 months, did you worry whether your food would run out before you got money to buy more?: Never true Do you have trouble paying for medicines?: No Do you have trouble getting transportation to medical appointments?: No Do you have trouble paying your heating and electricity bill?: No Do you have trouble taking care of your child, family member or friend?: No Do you have trouble with day-to-day activities such as bathing, preparing meals, shopping, managing finances, etc.?: No Are you currently unemployed and looking for a job?: No Are you interested in more education?: No Please select the resources that you would like help with: None Currently or been in a relationship where the following occur: No concerns reported THRIVE Score: 0 AUDIT C Alcohol Use Questionnaire (AUDIT-C) 1. How often do you have a drink containing alcohol?: 2-3 times a week 2. How many drinks containing alcohol do you have on a typical day when you are drinking?: 3 or 4 3. How often do you have six or more drinks on one occasion?: Less than monthly Total Score: 5 ARIANA-7 AMB Questionnaire ARIANA-7 Date ARIANA - 7 assessed: 01/31/25 Feeling nervous, anxious, or on edge: 0 = Not at all Not being able to stop or control worryin = Not at all Worrying too much about different things: 0 = Not at all Trouble relaxin = Several days Being so restless that it is hard to sit still: 1 = Several days Becoming easily annoyed or irritable: 0 = Not at all Feeling afraid as if something awful might happen: 0 = Not at all Total ARIANA-7 score (0-4 normal; 5-9 mild; 10-14 moderate; 15-21 severe): 2 Source: Developed by Drs. Ravinder Milligan, Tennille Saucedo, Saroj Mcconnell and colleagues, with an educational esteban from [employer]. ARIANA-7 Assessment Billing ARIANA-7 Assessment Tool: ARIANA-7 Assessment 12108 Review of Systems Const Denies chills, Denies fatigue, Denies fever(s), Denies headache(s) and Denies weakness Eyes Denies change in vision ENT Denies dizziness, Denies headache(s), Denies hearing loss, Denies nasal congestion, Denies sinus pain, Denies sinus pressure and Denies sore throat Card Denies chest pain, Denies lightheadedness, Denies dyspnea and Denies other (palpitations) Resp Denies cough, Denies dyspnea and Denies wheezing GI Denies abdominal pain, Denies melena, Denies hematochezia, Denies change in bowel habits, Denies dyspepsia and Denies nausea Denies hematuria and Denies dysuria Musc Denies abnormal gait, Denies myalgias, Denies arthralgias, Denies numbness and Denies tingling Skin/Breast Denies rash, Denies unusual bruising and Denies wounds Neuro Denies abnormal gait, Denies dizziness, Denies headache(s), Denies memory loss, Denies numbness, Denies Sensory deficit (Neuro), Denies tingling and Denies weakness Psych Denies anxiety, Denies depression and Denies memory loss Endo Denies cold intolerance, Denies fatigue, Denies heat intolerance, Denies polydipsia and Denies polyuria Darvin/Lymph Denies easy bleeding and Denies easy bruising Aller/Immun Denies wheezing Physical exam (Primary Care) Vital Signs: Last Vital Signs Pulse 73 01/31/25 08:49 BP 138/86 01/31/25 08:49 Pulse Ox 96 01/31/25 08:49 Oxygen Delivery Method Room Air 01/31/25 08:49 BMI result Body Mass Index 33.3 Tobacco/Smoking Status: Tobacco use Status Tobacco use date assessed 01/31/25 01/31/25 08:50 Patient Tobacco Use Status Never used Tobacco 01/31/25 08:50 e-Cigarette/Vaping Use Never Used 01/31/25 08:50 PHQ-9: PHQ-9 Score PHQ-9: Total score 6 01/31/25 09:18 Depression Screening Interpretation: Positive Depression Screening Follow-up: Declines treatment Thrive Assessment: Date of Thrive Assessment Date Thrive assessed 01/31/25 01/31/25 08:50 Currently or been in a relationship where the following occur: No concerns reported Const General: no acute distress, well developed, alert and awake Nutritional Appearance: well nourished Orientation/consciousness: patient oriented x3 HENMT Head: Yes normocephalic and Yes atraumatic Ears: hearing grossly normal bilaterally and TM's normal bilaterally General nose exam: Normal external nose present and Normal nares present Mouth: Normal oral and palatal mucosa present and moist mucous membranes Teeth and gingiva: dentition normal Throat: Yes posterior oropharynx normal Eyes General: appearance normal, both eyes and all related structures Pupils: Equal, round and reactive pupils present and Pupil accommodation reflex normal EOM: EOMs intact bilaterally Neck Neck: Yes normal visual inspection, Yes no lymphadenopathy and Yes trachea midline Thyroid: Thyroid normal Carotids: no bruits Lymphatic: no lymphadenopathy noted Chest Chest palpation & inspection: normal inspection of the chest Resp Effort & Inspection: normal respiratory effort Auscultation: clear to auscultation bilaterally Cardio Rate: regular rate Rhythm: regular rhythm Heart sounds: S1 normal heart sound present, S2 normal heart sound present, no gallops, no murmurs and no rubs Bruits: no abdominal aortic bruits and no carotid bruits GI Palpation (GI): No Abdominal aortic bruit present, Soft to palpation, nontender, No hepatosplenomegaly present and No Rebound tenderness present Auscultation: normal bowel sounds General: Yes no CVA tenderness Back/Spine/Pelvis Back: no CVA tenderness Cervical Spine: cervical ROM normal and No Cervical spine tenderness Thoracic/Lumbar Spine: thoraco-lumbar ROM normal, No pain with thoraco-lumbar ROM, No thoracic spinal tenderness and No lumbar spinal tenderness Skin Lesions: no lesions Rashes: no rashes Trauma: no lacerations or abrasions Wounds: no wounds Nails: normal Neuro General: patient oriented x3 Cranial nerves: Yes Equal, round and reactive pupils present Cognition (Neuro): normal cognition Gait exam (Neuro): Normal gait present Motor exam (neuro): 5/5 motor strength present throughout Sensory Exam: No Sensory deficit (Neuro) Deep tendon reflexes (DTR's): Right patellar reflex intensity grade: 2+ and Left patellar reflex intensity grade: 2+ Extrem General: Yes normal to inspection and No edema Psych Appearance: grossly normal Affect: normal affect Attitude: cooperative Thought process: Normal thought process present Coding Level of Care Code Est Pt Level 3 (62885) Est Pt Prev Care 40-64y(21621) Diagnoses Adult general medical exam Z00.00 Hyperlipidemia E78.5 Screening for colon cancer Z12.11 Obesity E66.9 Screening for prostate cancer Z12.5 KALA on CPAP G47.33 Insomnia G47.00 Additional Codes ARIANA-7 Assessment Billing - ARIANA-7 Assessment Tool: ARIANA-7 Assessment 26898 ([id number]) PHQ-9 - 42233 - PHQ-9 Billing: Yes ([id number]) Assessment & Plan Assessment & Plan (1) Adult general medical exam: Code(s): Z00.00 - Encounter for general adult medical examination without abnormal findings Category: Medical Plan: 49-year-old male presents for complete physical exam Encouraged healthy diet with active lifestyle of exercise (2) Hyperlipidemia: Code(s): E78.5 - Hyperlipidemia, unspecified Category: Medical Plan: LDL cholesterol is little too high Encouraged a diet lower in saturated fats and cholesterol Encouraged weight loss and exercise Will continue to monitor (3) Screening for colon cancer: Code(s): Z12.11 - Encounter for screening for malignant neoplasm of colon Category: Medical Plan: Has not had colonoscopy. May new referral to gastroenterology (4) Obesity: Code(s): E66.9 - Obesity, unspecified Category: Medical Plan: Encouraged weight loss (5) Screening for prostate cancer: Code(s): Z12.5 - Encounter for screening for malignant neoplasm of prostate Category: Medical Plan: PSA was within normal range Continue annual screening (6) KALA on CPAP: Code(s): G47.33 - Obstructive sleep apnea (adult) (pediatric) Category: Medical Plan: History of sleep apnea and on CPAP. Waking up each night around 02:00AM. Has not had CPAP calibrated in years Referred to Sleep Medicine (7) Insomnia: Code(s): G47.00 - Insomnia, unspecified Category: Medical Plan: As above Also recommend he look up sleep hygiene and read about it Encouraged exercise but not too close to bedtime Avoid alcohol before bedtime Has tried hydroxyzine and trazodone without much effect. We can discuss in at his next visit Orders: Orders Comprehensive [place]. Panel Fast 4 Months E78.5 - Hyperlipidemia, unspecified, Z00.00 - Encounter for general adult medical examination without abnormal findings Lipid Panel 4 Months E78.5 - Hyperlipidemia, unspecified, Z00.00 - Encounter for general adult medical examination without abnormal findings Referrals Sleep Medicine Referral G47.30 - Sleep apnea, unspecified
== END 2025-01-31 09:36 | disposition home or self-care (01) ==
LOC: HO.HMCFM 08:45
PROVIDERS: PCP Family Medicine; Visit Provider Family Medicine
DX: Z00.00 Encounter for general adult medical examination without abnormal findings (principal); E78.5 Hyperlipidemia, unspecified; E66.9 Obesity, unspecified; Z68.33 Body mass index [BMI] 33.0-33.9, adult; Z12.11 Encounter for screening for malignant neoplasm of colon; Z12.5 Encounter for screening for malignant neoplasm of prostate; G47.33 Obstructive sleep apnea (adult) (pediatric); G47.00 Insomnia, unspecified

== ENCOUNTER → 2025-01-31 08:44 | Outpatient (BNVA) | payer OTHER, SELFPAY | PROVIDERS: PCP Family Medicine; Visit Provider Family Medicine | DX: Z00.00 Encounter for general adult medical examination without abnormal findings (principal); E78.5 Hyperlipidemia, unspecified; G47.33 Obstructive sleep apnea (adult) (pediatric); E66.9 Obesity, unspecified; G47.00 Insomnia, unspecified; Z68.33 Body mass index [BMI] 33.0-33.9, adult; Z99.89 Dependence on other enabling machines and devices | CPT/HCPCS: 96127 ==

== ENCOUNTER 2025-02-21 09:34 | Outpatient (AMB) | payer OTHER, SELFPAY ==
[2025-02-21 09:37] VITALS: BP 118/82; PULSE 82; O2SAT 96; BMI 33.8
--- NOTE | 2025-02-21 09:37 | MHC.OFFVIS ---
Vital Signs 02/21/25 09:37 Height 6 ft 1 in Weight 256 lb 6 oz BMI 33.8 BP 118/82 Blood Pressure Location Rt brachial Position Sitting Pulse 82 Pulse Source Pulse Oximeter Pulse Oximetry (%) 96 Oxygen Delivery Method Room Air Intake Visit Reasons: 01/31LVM+LET INP_OSA Intake Note: Patient presents [employer] KALA. History of sleep apnea and has not had his CPAP titrated in years. He reports ongoing insomnia. Does have KALA and has been using his CPAP machine. He does not remember the last time machine has been calibrated. Has already tried trazodone and hydroxyzine. He will look up sleep hygiene. Advised he avoid alcohol too close to bedtime and advised exercise but not too close bedtime. Compliance in chart(90/90days, >=4hrs-67%, Average usage-4hrs 32min, Med pressure-9.6, Med leaks- 0.2, AHI-0.5) Accompanied by: Self / Same As Patient Allergies Seasonal Allergies Allergy (Mild, Verified 02/21/25 09:41) itchy, watery eyes, runny nose HPI Comments Details: 49 year old male here for a f/u of kala on cpap. KALA Compliance Report 11/2024- 01/2025 Total average use 90/90 days, and 60 days > 4hours 32 min. Med press 9.6cmH20 and Leaks 0.2cmH20 and AHI is 0.5/hr. He washes his mask, rinses hoses, changes filters and fills reservoir with water. He works 12 hours a day and eats supper late at night and is conscious of his weight gain. He lost 30lbs in 2 year. He goes to bed at 9:30pm, wakes up at 1:30am to 2am, he has one bathroom break. He uses his cpap daily and is compliant. He feels his sleep quality has improved though can be restless at night. He used to snore, grind his teeth and clench his jaw, then wakes up with morning headaches. Though not too bothersome. He drinks about 3 white claws per sitting, 3-4x a week socially. He has knee pain bilaterally. Root meniscus surgery on l. and r. knee ACL/Meniscus tear. He has RLS symptoms and will kick his feet up, and it is worse at night. Mood is good, can be irritable due to lack of sleep. He tried magnesium 400mg po daily at bedtime and melatonin, did not work. Will try gabapentin 100mg po daily at bedtime. [facility] Medical History Seasonal allergies Surgical History H/O knee surgery [place] teeth removed Family History Maternal Grandfather Colon cancer Social History Household Members: Family Both parents involved: No Caregiver staying overnight: No Housing: House Are you a primary day care director to a significant other at home: No Do you presently have visiting nurse or other home services: No 75 years or older and lives alone: No Alcohol intake: current Patient Tobacco Use Status: Never used Tobacco e-Cigarette/Vaping Use: Never Used Substance Use Type: Marijuana Special shakila needs: No service: Yes Current occupational status: employed Current occupation: [employer] Current occupational exposures/hazards: No Cognitive needs: No Hearing needs: No Vision needs: Yes (Patient wears glasses.) Physical Exam Vital Signs: Last Vital Signs Pulse 82 02/21/25 09:37 BP 118/82 02/21/25 09:37 Pulse Ox 96 02/21/25 09:37 Oxygen Delivery Method Room Air 02/21/25 09:37 BMI result Body Mass Index 33.8 Const General: cooperative and comfortable Nutritional Appearance: overweight Orientation/consciousness: patient oriented x3 HEENT Face and sinus: Yes face symmetric Teeth and gingiva: other (mallampti score is 4) Throat: Yes uvula midline Eyes Pupils: Equal, round and reactive pupils present Neck Neck: Yes full ROM Resp Effort & Inspection: normal respiratory effort and able to speak in complete sentences Neuro General: patient oriented x3 and moves all extremities Cranial nerves: Yes Equal, round and reactive pupils present, Yes Normal facial strength present, Yes Midline tongue present, Yes Ability to bilaterally rotate head present and Yes Ability to bilaterally elevate shoulders present Gait exam (Neuro): Normal gait present Motor exam (neuro): 5/5 motor strength present throughout and Normal motor muscle tone present throughout Coordination: [id number] test normal Psych Appearance: grossly normal Attitude: cooperative Thought process: Normal thought process present Results Reviewed Results Reviewed: KALA Compliance Report 11/2024- 01/2025 Total average use 90/90 days, and 60 days > 4hours 32 min. Med press 9.6cmH20 and Leaks 0.2cmH20 and AHI is 0.5/hr. He washes his mask, rinses hoses, changes filters and fills reservoir with water. Assessment & Plan Assessment & Plan (1) Excessive daytime sleepiness: Code(s): G47.19 - Other hypersomnia Category: Medical (2) RLS (restless legs syndrome): Code(s): G25.81 - Restless legs syndrome Category: Medical Plan KALA reviewed compliance and for >4hours per night. RLS Gabapentin 100mg po daily at bedtime. Labs to r/o deficiencies. Orders: Orders Vitamin D 25-OH Total Today G47.19 - Other hypersomnia Vitamin B12 and Folate Today G47.19 - Other hypersomnia Homocysteine Today G47.19 - Other hypersomnia, G47.9 - Sleep disorder, unspecified, R53.83 - Other fatigue Ferritin Today G47.19 - Other hypersomnia Vitamin B6 Today G47.19 - Other hypersomnia Methylmalonic Acid Today G47.19 - Other hypersomnia, G47.9 - Sleep disorder, unspecified, R53.83 - Other fatigue Medications: New gabapentin 100mg po daily at bedtime 100 mg PO BEDTIME 30 caps 0RF RLS 1 month MDD 100mg po daily G25.81 - Restless legs syndrome Patient Instructions: Sleep Hygiene provided: set a scheduled bedtime and wake time to help regulate the circadian rhythm and balance the release of pituitary hormones. Sleep in a dark room, temperatures below 68 degrees, and no devices n bed. Limit caffeinated products 6 hours prior to bed, and limit fluids 2-4 hours prior to bed. Gentle night yoga, diffusing essential oils, and playing soft music can be relaxing. Coding Level of Care Code Est Pt Level 4 (39662) Diagnoses Excessive daytime sleepiness G47.19 RLS (restless legs syndrome) G25.81
== END 2025-02-21 10:12 | disposition home or self-care (01) ==
LOC: HO.HSMS 09:35
PROVIDERS: PCP Family Medicine; Visit Provider Physician Assistant Medical
DX: G47.19 Other hypersomnia (principal); G25.81 Restless legs syndrome
CPT/HCPCS: 99214

== ENCOUNTER 2025-02-22 09:24 | Outpatient (REF) | payer OTHER, SELFPAY ==
[2025-02-22 12:39] LABS: Ferritin 692 ng/mL (20-250)
[2025-02-22 12:47] LABS: Folate 10.4 ng/mL (> or = 4.0); Vitamin B12 320 pg/mL (200-900)
== END 2025-02-22 09:25 | disposition home or self-care (01) ==
LOC: HO.WFDLDS 09:24
PROVIDERS: Visit Provider Physician Assistant Medical
DX: G47.19 Other hypersomnia (principal); R53.83 Other fatigue; G47.9 Sleep disorder, unspecified
CPT/HCPCS: 36415; 82306; 82607; 82728; 82746; 83921; 84207

== ENCOUNTER 2025-04-28 08:16 | Outpatient (REF) | payer OTHER, SELFPAY | END 2025-04-28 08:17 | disposition home or self-care (01) | LOC: HO.WFDLDS 08:16 | PROVIDERS: Visit Provider Family Medicine | DX: Z13.89 Encounter for screening for other disorder (principal) ==

== ENCOUNTER 2025-05-31 08:29 | Outpatient (REF) | payer OTHER, SELFPAY ==
[2025-05-31 09:39] LABS: Alanine Aminotransferase 24 U/L (0-40); Albumin Level 4.6 g/dL (3.5-5.0); Alkaline Phosphatase 125 U/L (39-117); Anion Gap 11 (12-20); Aspartate Amino Transferase 23 U/L (5-37); Blood Urea Nitrogen 14 mg/dL (9-16); Calcium 9.6 mg/dL (8.4-10.2); Carbon Dioxide 28 mmol/L (22-29); Chloride 107 mmol/L (96-108); Cholesterol 185 mg/dL (<200); Estimated Glomerular Filt Rate > 60; HDL Cholesterol 47 mg/dL (>40); Potassium 4.2 mmol/L (3.3-5.1); Sodium 142 mmol/L (135-145); Total Protein 7.3 g/dL (6.5-8.0); Triglycerides 109 mg/dL (<150)
== END 2025-05-31 08:30 | disposition home or self-care (01) ==
LOC: HO.LAB 08:29
PROVIDERS: Absent Provider Family Medicine; PCP Family Medicine; Visit Provider Physician Assistant Medical
DX: Z00.00 Encounter for general adult medical examination without abnormal findings (principal); E78.5 Hyperlipidemia, unspecified
CPT/HCPCS: 36415; 80053; 80061

== ENCOUNTER 2025-06-07 08:09 | Outpatient (AMB) | payer OTHER, SELFPAY ==
[2025-06-07 08:07] VITALS: BP 124/76; PULSE 60; O2SAT 96; BMI 34.7
--- NOTE | 2025-06-07 08:07 | MHC.OFFVIS ---
Vital Signs 06/07/25 08:07 Height 6 ft 1 in Weight 263 lb 4 oz BMI 34.7 BP 124/76 Blood Pressure Location Rt brachial Position Sitting Pulse 60 Pulse Source Pulse Oximeter Pulse Oximetry (%) 96 Oxygen Delivery Method Room Air Intake Visit Reasons: 3 mo follow up Intake Note: Patient presents follow up KALA medication. Labs/compliance in chart(90/90days, >=4hrs-61%, Average Usage-4hr 26min, Med Pressure-9.7, Med Leaks-0.0, AHI-0.3) Accompanied by: Self / Same As Patient Allergies Seasonal Allergies Allergy (Mild, Verified 06/07/25 08:10) itchy, watery eyes, runny nose HPI Comments Details: 49 year old male here for a f/u of kala on cpap. KALA Compliance Report 02/2025- 05/2025 Total average use 90/90 days, and > 4 hours is 61%, avg daily use 4hours 26min. Med press 9.7cmH20 and Leaks 0.0/min and AHI is 0.3/hr. He washes his mask, rinses hoses, changes filters and fills reservoir with water. He uses his cpap daily and is compliant, the pressures are good for him, denies any excessive leaks, he does drool. He is a side sleeper and would like to try the airfit F30i mask, with the 360 degree swivel hoses. His sleep quality has improved though can be restless at night due to leg discomfort and RLS symptoms of bilateral paresthesias, twitching in lower extremities, and kicks his feet, this usually wakes him up and he stretches his legs, walks around then tries to go back to sleep. He has knee pain bilaterally. Root meniscus surgery both knees with ACL/Meniscus tears over 10 years ago. He has a structured bed time routine, eats dinner at 7pm and goes to bed at 9:30pm, and still wakes up at 2am, he tried melatonin and magnesium, both were ineffective. Gabapentin helps with sleeping through the night. He denies snoring since starting cpap, morning headaches have improved. Mood is stable, can be irritable due to lack of sleep. He drinks about 3 white claws per sitting, 3-4x a week socially after work. [facility] Medical History Seasonal allergies Surgical History H/O knee surgery [place] teeth removed Family History Maternal Grandfather Colon cancer Social History Household Members: Family Both parents involved: No Caregiver staying overnight: No Housing: House Are you a primary janitor caretaker to a significant other at home: No Do you presently have visiting nurse or other home services: No 75 years or older and lives alone: No Alcohol intake: current Patient Tobacco Use Status: Never used Tobacco e-Cigarette/Vaping Use: Never Used Substance Use Type: Marijuana Special shakila needs: No service: Yes Current occupational status: employed Current occupation: [employer] Current occupational exposures/hazards: No Cognitive needs: No Hearing needs: No Vision needs: Yes (Patient wears glasses.) Physical Exam Vital Signs: Last Vital Signs Pulse 60 06/07/25 08:07 BP 124/76 06/07/25 08:07 Pulse Ox 96 06/07/25 08:07 Oxygen Delivery Method Room Air 06/07/25 08:07 BMI result Body Mass Index 34.7 Const General: cooperative and comfortable Nutritional Appearance: overweight Orientation/consciousness: patient oriented x3 HEENT Face and sinus: Yes face symmetric Teeth and gingiva: other (mallampti score is 4) Throat: Yes uvula midline Eyes Pupils: Equal, round and reactive pupils present Neck Neck: Yes full ROM Resp Effort & Inspection: normal respiratory effort and able to speak in complete sentences Neuro Other: r. eye fat deposit? General: patient oriented x3 and moves all extremities Cranial nerves: Yes Equal, round and reactive pupils present, Yes Normal facial strength present, Yes Midline tongue present, Yes Ability to bilaterally rotate head present and Yes Ability to bilaterally elevate shoulders present Gait exam (Neuro): Normal gait present Motor exam (neuro): 5/5 motor strength present throughout and Normal motor muscle tone present throughout Deep tendon reflexes (DTR's): Right triceps reflex intensity grade: 2+, Left triceps reflex intensity grade: 2+, Rt Biceps (C5, C6): 2+, Left biceps reflex intensity grade: 2+, Right brachioradialis reflex intensity grade: 2+, Left brachioradialis reflex intensity grade: 2+, Right patellar reflex intensity grade: 2+ and Left patellar reflex intensity grade: 2+ Coordination: [id number] test normal Psych Appearance: grossly normal Attitude: cooperative Thought process: Normal thought process present Results Reviewed Results Reviewed: KALA Compliance Report 02/2025- 05/2025 reviewed with pt. Total average use 90/90 days, and > 4 hours is 61%, avg daily use 4hours 26min. Med press 9.7cmH20 and Leaks 0.0/min and AHI is 0.3/hr. He washes his mask, rinses hoses, changes filters and fills reservoir with water. Labs reviewed with pt. Assessment & Plan Assessment & Plan (1) Excessive daytime sleepiness: Code(s): G47.19 - Other hypersomnia Category: Medical (2) RLS (restless legs syndrome): Code(s): G25.81 - Restless legs syndrome Category: Medical (3) Muscle twitch: Code(s): R25.3 - Fasciculation Category: Medical Plan KALA reviewed compliance and for >4hours per night. Would like to try the airfit F30i full face mask as he is a side sleeper and thinks the universal 360 freedom category may be more suitable for his sleep comfort. RLS twitching of legs bilaterally Gabapentin 200mg po daily at bedtime. Labs reviewed with pt. continue B12 1000mg po daily at bedtime, homocysteine / mma / folate are normal. Ferritin is high at 695, discussed tapering of Alcohol use as this can interfere with sleep, may start him on Acamproste, if pt is amenable at next f/u. F/U in 6months, call the office if you have any questions regarding medications or mask. Medications: Changed From gabapentin 100mg po BID daily. 100 mg PO BID 1 month 60 caps 0RF RLS MDD 100mg po daily G2.81 - Restless legs syndrome To gabapentin 200mg po daily. 200 mg (2 x 100 mg) PO ONCE 180 caps 0RF RLS 3 months G2.81 - Restless legs syndrome Coding Level of Care Code Est Pt Level 4 (37999) Diagnoses Excessive daytime sleepiness G47.19 RLS (restless legs syndrome) G25.81 Muscle twitch R25.3
== END 2025-06-07 08:36 | disposition home or self-care (01) ==
LOC: HO.HSMS 08:09
PROVIDERS: PCP Family Medicine; Visit Provider Physician Assistant Medical
DX: G47.19 Other hypersomnia (principal); G25.81 Restless legs syndrome; R25.3 Fasciculation
CPT/HCPCS: 99214